=== PATIENT | female | born 1995 | race Two or more races ===

== ENCOUNTER → 2024-06-04 | Outpatient (CLI) | payer BC ==
[2024-06-04 11:56] LABS: Basophils # (auto) 0.1 10 ^3/uL (0-0.2); Basophils % (auto) 0.6 % (0.0-2.0); Eosinophils # (auto) 0.1 10 ^3/uL (0-0.8); Eosinophils % (auto) 1.1 % (0.0-7.0); Hematocrit 37.7 % (36.0-46.0); Hemoglobin 12.7 g/dL (12.2-16.2); Lymphocytes # (auto) 2.3 10 ^3/uL (0.4-5.4); Lymphocytes % (auto) 24.5 % (10.0-50.0); Mean Corpuscular Hemoglobin 28.3 pg (28.0-32.0); Mean Corpuscular Hgb Conc. 33.6 g/dL (32.0-36.0); Mean Corpuscular Volume 84.3 fL (80.0-100.0); Monocytes # (auto) 0.5 10 ^3/uL (0-1.3); Monocytes % (auto) 5.9 % (0.0-12.0); Neutrophils # (auto) 6.2 10 ^3/uL (1.6-8.6); Neutrophils % (auto) 67.9 % (37.0-80.0); Platelet Count (auto) 286 10^3/uL (140-450); Red Blood Cells 4.48 10^6/uL (4.0-5.20); Red Cell Distribution Width 13.6 % (11.8-14.3); White Blood Cell 9.2 10^3/uL (4.4-10.8)
[2024-06-05 07:07] LABS: RPR Non Reactive (Non Reactive)
[2024-06-05 13:03] LABS: Amphetamine Screen, Urine Neg (NEGATIVE); Barbiturate Scree,Urine Neg (NEGATIVE); Benzodiazephine Screen, Urine Neg (NEGATIVE); Cocaine Screen, Urine Neg (NEGATIVE); Opiate Scree,Urine Neg (NEGATIVE); Phencyclidine Screen, Urine Neg (NEGATIVE)
[2024-06-05 13:06] LABS: Chlamydia Trachomatis, NAA Negative (Negative); Neisseria gonorrhoeae, NAA Negative (Negative)
[2024-06-05 13:35] LABS: Cannabinoid Screen, Urine Neg (NEGATIVE)
== END | disposition home or self-care (01) ==
LOC: LAB 11:24
PROVIDERS: ATTEND Obstetrics & Gynecology
DX: O23.40 Unspecified infection of urinary tract in pregnancy, unspecified trimester (principal); Z31.430 Encounter of female for testing for genetic disease carrier status for procreative management; N39.0 Urinary tract infection, site not specified; Z20.09 Contact with and (suspected) exposure to other intestinal infectious diseases; Z3A.00 Weeks of gestation of pregnancy not specified
CPT/HCPCS: 36415; 80307; 83036; 84144; 84702; 85025; 86592; 86703; 86762; 86850; 86900; 86901; 87086; 87340

== ENCOUNTER 2024-06-08 20:16 | Emergency (ER) | payer BC | END 2024-06-08 21:14 | disposition left against medical advice (07) | LOC: ER 20:16 | DX: N93.9 Abnormal uterine and vaginal bleeding, unspecified (principal); Z53.21 Procedure and treatment not carried out due to patient leaving prior to being seen by health care provider ==

== ENCOUNTER 2024-09-26 13:17 | Observation (INO) | payer BC ==
[~2024-09-26] VITALS: Ht 157.5 cm; Wt 70.3 kg
[2024-09-26] MEDS ORDERED: PREN-129 OR (13:29)
--- NOTE | 2024-09-26 14:39 | DVH ---
LIMITED OB ULTRASOUND > 14 WKS: HISTORY: Cervical Length/ Short Cervix TECHNIQUE: Multiple real-time grayscale images of the gravid uterus with duplex Doppler color flow an d M-mode spectral analysis. TRANSDUCER: Pain FINDINGS: IUP single live fetus at 23 weeks 2 days based on composite averages of the BPD, head circumference, abdominal circumference and femur length Estimated weight 543 grams heart rate 153 beats per minute LITA subjectively adequate; MVP 5.2 cm. Cervix measures 2.5 cm. Breech Presentation Anterior Placenta without previa or abruption. IMPRESSION: IUP single live fetus at 23 weeks 2 days AUA corresponding to an JAYDEN of 01/21/2025 Cervix is shortened measures 2.5 cm with possible funneling visualized. Recommend correlation with g ynecologic exam.
[2024-09-26] MEDS: BETAMETHASONE ACET (30mg/5ml) 5ml Vial 6mg/ml IM ONE (15:39)
--- NOTE | 2024-09-28 08:40 | DVHDS2 ---
Physician Discharge Progress N Final Diagnosis: short cx,ptl 24wks Operations or Procedures: Operations or Procedures nst reactive reviwed,sono Condition on Discharge: Good Disposition: Home Discharge Instructions: Diet: Regular Activity: No Restrictions, As Tolerated Follow Up/Referral: as scheduled Medications: na Follow Up Care: Specialist: 1d Discharge Statement: "Patient was advised to return to the ER or call 911 if any headaches, dizziness, shortness of breath, chest pain, abdominal pain, bleeding, fevers, or worsening of medical condition. Patient was counseled about treatment plan, medications, possible side effects, patientverbalized understanding. All questions were answered to the best of my ability. This discharge took greater then 30 minutes in planning, reviewing documentation, counseling the patient, and discussing with other team members." Visit Coding OBGYN Date of Service: Sep 26, 2024 Billing Provider: MEKA PATEL DO BOOM [employer]ORAGE Common Visit Codes: [id number] OBS CARE (HIGH) BOOM STORAGE Procedure Codes: 56771-78- NON-STRESS TEST MEKA PATEL DO Sep 28, 2024 08:40
== END 2024-09-26 15:47 | disposition home or self-care (01) ==
LOC: LDRP 13:17
PROVIDERS: ADMIT Obstetrics & Gynecology; ATTEND Obstetrics & Gynecology
DX: O26.872 Cervical shortening, second trimester (principal); O60.02 Preterm labor without delivery, second trimester; Z3A.24 24 weeks gestation of pregnancy; Z79.899 Other long term (current) drug therapy; Z98.890 Other specified postprocedural states
CPT/HCPCS: 76805; 81002; 94760; 96372; G0378; J0702

== ENCOUNTER 2024-09-27 14:54 | Observation (INO) | payer BC ==
[~2024-09-27] VITALS: Ht 157.5 cm; Wt 59.0 kg
[~2024-09-27 14:54] MED LIST: PREN-129 OR
[2024-09-27] MEDS: BETAMETHASONE ACET (30mg/5ml) 5ml Vial 6mg/ml IM ONE (15:52)
--- NOTE | 2024-09-27 17:41 | DVHDS2 ---
Physician Discharge Progress N Final Diagnosis: PTL 24WKS Operations or Procedures: Operations or Procedures NST REVIEWED REACTIVE Condition on Discharge: Good Disposition: Home Discharge Instructions: Diet: Regular Activity: No Restrictions, As Tolerated Medications: NA Follow Up Care: Specialist: 1W Discharge Statement: "Patient was advised to return to the ER or call 911 if any headaches, dizziness, shortness of breath, chest pain, abdominal pain, bleeding, fevers, or worsening of medical condition. Patient was counseled about treatment plan, medications, possible side effects, patientverbalized understanding. All questions were answered to the best of my ability. This discharge took greater then 30 minutes in planning, reviewing documentation, counseling the patient, and discussing with other team members." Visit Coding OBGYN Date of Service: Sep 27, 2024 Billing Provider: MEKA PATEL DO MEDICAL RECORDS AUDITOR Common Visit Codes: 00410-LEAIZEE INP/OBS CARE (HIGH) MEDICAL RECORDS AUDITOR Procedure Codes: 79007-95- NON-STRESS TEST MEKA PATEL DO Sep 27, 2024 17:41
== END 2024-09-27 16:27 | disposition home or self-care (01) ==
LOC: LDRP 14:54 → UNDOADMOB 14:54 → LDRP 15:07
PROVIDERS: ADMIT Obstetrics & Gynecology; ATTEND Obstetrics & Gynecology
DX: O60.02 Preterm labor without delivery, second trimester (principal); Z3A.24 24 weeks gestation of pregnancy; Z79.899 Other long term (current) drug therapy; Z98.890 Other specified postprocedural states
CPT/HCPCS: 59025; 81002; 94760; 96372; G0378; J0702

== ENCOUNTER 2024-10-03 09:37 | Observation (INO) | payer BC | END 2024-10-03 17:37 | disposition home or self-care (01) | LOC: LDRP 17:05 | PROVIDERS: ADMIT Obstetrics & Gynecology; ATTEND Obstetrics & Gynecology | DX: O26.872 Cervical shortening, second trimester (principal); Z3A.25 25 weeks gestation of pregnancy; Z79.899 Other long term (current) drug therapy; Z98.890 Other specified postprocedural states | CPT/HCPCS: 81002; 94760; G0378 ==

== ENCOUNTER 2024-10-10 06:25 | Observation (INO) | payer BC ==
[2024-10-10] MEDS ORDERED: NIFE10CA52 PO (09:42)
--- NOTE | 2024-10-10 10:11 | DVHDS2 ---
Physician Discharge Progress N Final Diagnosis: ptl,26wks Operations or Procedures: Operations or Procedures nst reactive abdoul issa Condition on Discharge: Good Disposition: Home Discharge Instructions: Diet: Regular Activity: See Comment Activity comment: Pelvic Rest Medications: na Follow Up Care: Specialist: 1w Discharge Statement: "Patient was advised to return to the ER or call 911 if any headaches, dizziness, shortness of breath, chest pain, abdominal pain, bleeding, fevers, or worsening of medical condition. Patient was counseled about treatment plan, medications, possible side effects, patientverbalized understanding. All questions were answered to the best of my ability. This discharge took greater then 30 minutes in planning, reviewing documentation, counseling the patient, and discussing with other team members." Visit Coding OBGYN Date of Service: Oct 10, 2024 Billing Provider: MEKA PATEL DO BLAST SETTER Common Visit Codes: 26134-[id number] OBS CARE (HIGH) BLAST SETTER Procedure Codes: 53515-27- NON-STRESS TEST MEKA PATEL DO Oct 10, 2024 10:11
== END 2024-10-10 09:51 | disposition home or self-care (01) ==
LOC: LDRP 08:53 → UNDOADMOB 08:53 → LDRP 09:04
PROVIDERS: ADMIT Obstetrics & Gynecology; ATTEND Obstetrics & Gynecology
DX: O60.02 Preterm labor without delivery, second trimester (principal); Z3A.26 26 weeks gestation of pregnancy; Z79.899 Other long term (current) drug therapy
CPT/HCPCS: 81002; G0378

== ENCOUNTER 2024-11-05 08:36 | Outpatient (CLI) | payer BC ==
[~2024-11-05 08:36] MED LIST changes: +NIFE10CA52 PO
[2024-11-05 09:04] LABS: Hematocrit 32.4 % (36.0-46.0); Hemoglobin 10.8 g/dL (12.2-16.2); Mean Corpuscular Hemoglobin 27.2 pg (28.0-32.0); Mean Corpuscular Volume 81.8 fL (80.0-100.0); Nucleated Red Blood Cells % 0.0 %
== END 2024-11-05 17:00 | disposition home or self-care (01) ==
LOC: LAB 08:36
PROVIDERS: ATTEND Obstetrics & Gynecology
DX: Z34.93 Encounter for supervision of normal pregnancy, unspecified, third trimester (principal); Z3A.30 30 weeks gestation of pregnancy; Z79.899 Other long term (current) drug therapy
CPT/HCPCS: 36415; 82951; 83036; 85025; 87086

== ENCOUNTER 2024-12-28 04:35 | Inpatient (IN) | payer BC ==
[2024-12-28] VITALS (20 sets, daily range): BP systolic 91–127; BP diastolic 47–79; PULSE 83–112; RESP 16–18; TEMP 98.3–98.8; O2SAT 93–100
[~2024-12-28] VITALS: Ht 167.6 cm; Wt 81.2 kg
[2024-12-28] MEDS: LACTATED RINGER'S 1,000 ML IV SCH ×2 (05:00→06:29)
[2024-12-28 05:44] LABS: Hemoglobin 10.6 g/dL (12.2-16.2); Nucleated Red Blood Cells % 0.0 %
[2024-12-28 05:46] LABS: Hematocrit 31.6 % (36.0-46.0); Mean Corpuscular Hemoglobin 26.1 pg (28.0-32.0); Mean Corpuscular Volume 77.5 fL (80.0-100.0)
[2024-12-28] MEDS: LACTATED RINGER'S 1,000 ML IV ONE (05:47)
[2024-12-28 05:50] LABS: Urine Budding Yeast OCCASIONAL /hpf (None Seen); Urine Protein, UAD Negative (Negative)
[2024-12-28 05:59] LABS: Alanine Aminotransferase 11 U/L (7-40); Albumin 3.9 g/dL (3.2-4.8); Alkaline Phosphatase 110 U/L (46-116); Anion Gap 11 (5-15); BUN/Creatinine Ratio 9.6 (10.0-20.0); Blood Urea Nitrogen < 5 mg/dL (9-23); Calcium 9.0 mg/dL (8.7-10.4); Carbon Dioxide 20 mmol/L (20-31); Chloride 106 mmol/L (98-107); Glucose 78 mg/dL (74-106); INR 0.94 (0.9-1.15); Partial Thromboplastin Time 29.2 SEC (24.5-34.5); Potassium 3.8 mmol/L (3.5-5.1); Prothrombin Time 10.0 sec (9.3-11.8); Sodium 137 mmol/L (136-145); Total Protein 6.7 g/dL (5.7-8.2)
[2024-12-28 06:00] LABS: Bilirubin, Total 0.4 mg/dL (0.2-1.0)
--- NOTE | 2024-12-28 06:00 | DVHHP2 ---
OB CC & HPI Date Date of Admission: Dec 28, 2024 Patient Identification: : 2 Para: 1 EDC: Jan 14, 2025 EGA: 37-4/7 Chief Complaints: Reason for admission: active labor Indication for : desires repeat Admission Nurse Assessment Rev: Yes History of Present Complaints Good care against doctors Zabar Past Medical History Cardiac: No pertinent Hx Pulmonary: No pertinent Hx Central Nervous System: No pertinent Hx GI: No pertinent Hx Hemotology/Oncology: No pertinent Hx Hepatobiliary: No pertinent Hx Psychiatric: No pertinent Hx Musculoskeletal: No pertinent Hx Rheumotologic: No pertinent Hx Infectious Disease: No peritnent Hx ENT: No pertinent Hx Renal/: No pertinent Hx Endocrine: No pertinent Hx Dermatology: No pertinent Hx OB History OB History Care: Good Care Ultrasounds: Normal mid trimester US Obstetrical Complications: None Medical Complications: None Allergies: Coded Allergies: NO KNOWN ALLERGIES (Unverified , 09/26/24) Home Meds Reported Medications Nifedipine (PROCARDIA CAPSULE) 10 Mg Cp, 10 MG PO Q6HR, CAP 10/10/24 Vit W/ Ferrous Fumara () Tab, 1 OR, TAB 09/26/24 Current Medications Current Medications Medications (Trade) Dose Ordered Sig/Nilson Route PRN Reason Start Time Stop Time Status Last Admin Lactated Ringer's 1,000 ml @ 125 mls/hr Q8H IV 12/28/24 05:00 Lactated Ringer's 1,000 ml @ 125 mls/hr Q8H IV 12/28/24 05:00 Family & Social History Family/Social History Blood Type: A+ Rubella: immune RPR/VDRL: Negative GBS Status: Unknown HBsAG: Negative Review of Systems Constitutional: No symptom reported Ears, Nose, & Throat: No symptom reported Eyes: No symptom reported Pulmonary/Respiratory: No symptom reported Cardiovascular: No symptom reported Gastrointestinal: No symptom reported Genitourinary: No symptom reported Musculoskeletal: No symptom reported Skin: No symptom reported Psychiatric: No symptom reported Endocrine: No symptom reported Hemotologic/Lymphatic: No symptom reported OB Admission Exam Physical Exam HEENT: TMs Normal, Fontanelles Normal, Nasal Mucosa Normal, Eyes non-injected, Oropharynx Normal, PERRLA, Moist Membranes, EOMI Heart: Rhythm Normal Lungs: Clear Abdomen: Non tender Extremities: Normal Reflexes: Normal Cervical Dilatation: 3cm Effacement: 50% Station: -3 Membranes: Intact Heart Rate: 130's Accelerations: Accelerations Present Decelerations: No Decelerations Short Term Variability: Present Long-Term Variability: Average (6-25) Contractions on Admission: < 5 Minutes Apart Intensity: Moderate OB Plan Plan Admitting Diagnosis: Repeat Plan: Section Other Plan: I discussed the risks benefits complications and alternatives with patient and her at bedside. This discussion was not limited to infection bleeding anesthesia acute chronic pain damage to adjacent organs bladder ureter bowel nerve muscle and blood vessels. She understands the general risks of infection bleeding anesthesia acute chronic pain damage to adjacent organs transfusion hep B HIV transfusion reaction my stroke DVT PE. Despite these risks patient adamantly wants to proceed I encouraged her and her to ask questions and all questions were answered thoroughly. Visit Coding OBGYN Date of Service: Dec 28, 2024 Billing Provider: JOSELYN BLACK DO HEALTH INFORMATION PROVIDER Common Visit Codes: PROCEDURE ONLY HEALTH INFORMATION PROVIDER Procedure Codes: [id number]-ORGNI OB CARE, JOSELYN ESTEVES DO Dec 28, 2024 06:00
--- NOTE | 2024-12-28 06:05 | DVHOP2 ---
Operative Report - 2 Report Details Date: 12/28/24 Preop Diagnosis: 37-4/7 weeks early active labor intact previous section. Postop Diagnosis: Same Surgeon: Anish Hernandez Horn Player: Tien bautista Anesthesiologist: Chantell Weber MD Anesthesia: Regional Drains: Chapa catheter Implant: None Consent: The patient was informed of the risks and benefits of the procedure. These include but are not limited to complications of anesthesia, postoperative infection, incomplete relief of symptoms, recurrence of symptoms, damage to blood vessels, nerves and tendons, deep venous thrombosis, pulmonary embolism and possible need for repeat surgery in the future. Complications: None Estimated Blood Loss: 600 mL Fluids: See anesthesia log Findings: Infant vigorous cry and tone male Apgars Male 9:9 wt 5lbs 7 oz Indications for Surgery: Previous section early active labor Name of Procedure Performed Repeat low transverse section Procedure Details Procedure Details: Patient taken the operating room placed in sitting position spinal placed without difficulty she was then placed left lateral tilt prepped and draped sterile fashion. Once adequate analgesia assured low transverse incision was made with scalpel through old scar carried through to the rectus fascia nicked in midline carried laterally rectus muscle midline peritoneum entered with sharp dissection vesicouterine peritoneum was taken off lower uterine segment and low uterine transverse incision made to the hour glassing chorion an amniotic membranes these were ruptured with [place] forceps clear fluid vertex position. One hand placed lower uterine segment and head essentially delivered spontaneously nose and mouth bulb suctioned 62nd delay of cord clamping was performed in cord blood sample was taken placenta removed uterus exteriorized cleared of all clots and debris irrigated and closed with double layer of 0 Vicryl the bladder flap was incorporated into the 2nd running continuous 0 Vicryl closure of hysterotomy. Having complete hemostasis EBL 600 cc uterus good tone. This point instrument and lap sponge count correct x1 peritoneum closed with a running continuous 2-0 Vicryl rectus fascia closed with a running continuous PDS suture. Camper's Satinder's fascia approximated with 2-0 chromic and the skin was closed with a Pk needle with 3-0 Prolene benzoin Steri-Strips placed ABD pad with pressure dressing. Patient was frog-legged in vagina was cleared of all clots and debris and showed no active bleeding. Patient taken to recovery room stable condition infant went to nursery. Specimen: Placenta; cord blood Condition Good Disposition PACU JOSELYN HERNANDEZ DO Dec 28, 2024 06:05
[2024-12-28 06:20] LABS: Amphetamine Screen, Urine Neg (NEGATIVE); Barbiturate Scree,Urine Neg (NEGATIVE); Benzodiazephine Screen, Urine Neg (NEGATIVE); Cannabinoid Screen, Urine Neg (NEGATIVE); Cocaine Screen, Urine Neg (NEGATIVE); Opiate Scree,Urine Neg (NEGATIVE); Phencyclidine Screen, Urine Neg (NEGATIVE)
[2024-12-28] MEDS ORDERED: GLYCOPYRROLATE 0.2 MG/ML 1ML VIAL ONE (06:26)
[2024-12-28] MEDS ORDERED: ONDANSETRON HCL 4 MG/2 ML VIAL ONE (06:26)
[2024-12-28] MEDS ORDERED: fentaNYL CITRATE 100 MCG/2 ML VL ONE (06:26)
[2024-12-28] MEDS ORDERED: KETOROLAC TROMETH 30 MG/ML 1ML VIAL ONE (06:26)
[2024-12-28] MEDS ORDERED: MORPHINE SULF PF 5 MG/10 ML VIAL ONE (06:26)
[2024-12-28] MEDS ORDERED: BUPIVACAINE/DEXTROSE MPF 0.75% 2 ML AMP IT ONE (06:26)
[2024-12-28] MEDS: ceFAZolin 2 GM/D5W50ml 50 ML IV ONE (06:29)
[2024-12-28] MEDS ORDERED: ACETAMINOPHEN IV 1000 MG/100ML (10MG/ML) IV PRN (07:45)
[2024-12-28] MEDS ORDERED: LACTATED RINGER'S 1,000 ML IV SCH (07:45)
[2024-12-28] MEDS ORDERED: KETOROLAC TROMETH 30 MG/ML 1ML VIAL IV PRN ×2 (07:45→08:00)
[2024-12-28] MEDS ORDERED: NALOXONE HCL 0.4 MG/ML VIAL IV PRN (08:00)
[2024-12-28] MEDS ORDERED: diphenhdrAMINE HCL 50 MG/1 ML VL IV PRN (08:00)
[2024-12-28] MEDS ORDERED: ONDANSETRON HCL 4 MG/2 ML VIAL IV PRN (08:00)
[2024-12-28] MEDS: ceFAZolin 1GM/50ML 50 ML IV SCH (14:31)
[2024-12-28] MEDS: ACETAMINOPHEN IV 1000 MG/100ML (10MG/ML) IV PRN (15:03)
[2024-12-28] MEDS: KETOROLAC TROMETH 30 MG/ML 1ML VIAL IV PRN (19:13)
[2024-12-29] VITALS (13 sets, daily range): BP systolic 91–118; BP diastolic 49–64; PULSE 71–97; RESP 16–20; TEMP 97.7–98; O2SAT 94–98
--- NOTE | 2024-12-29 07:24 | DVHPN2 ---
Chief Complaints Patient reports: No new complaints, Feels better Nursing reports: No new complaints, No abdominal pain, No chest pain, No dizziness Objective Vitals Vital Signs Date Time Temp Pulse Resp B/P (MAP) Pulse Ox O2 Delivery O2 Flow Rate FiO2 12/29/24 05:30 77 16 95 12/29/24 03:00 97.7 91/52 (65) 97.7 12/28/24 18:59 Room Air Medications Current Medications Medications (Trade) Dose Ordered Sig/Nilson Route PRN Reason Start Time Stop Time Status Last Admin Acetaminophen (Ofirmev) 1,000 mg Q6HPRN PRN IV PAIN SCALE 1-6 OR TEMP>100.4 12/28/24 08:00 12/29/24 00:18 Acetaminophen (Ofirmev) 1,000 mg Q8HPRN PRN IV PAIN SCALE 1-3 OR TEMP>100.4 12/28/24 07:45 12/29/24 06:01 Cancel Diphenhydramine HCl (Benadryl Injection) 25 mg Q4HP PRN IV FOR ITCHING 12/28/24 08:00 Ketorolac Tromethamine (Toradol Injection) 30 mg Q6HP PRN IV SEVERE PAIN (7-10 PAIN SCALE) 12/28/24 18:15 01/02/25 07:59 12/28/24 19:13 Ketorolac Tromethamine (Toradol Injection) 30 mg Q8HPRN PRN IV MODERATE PAIN (4-6 PAIN SCALE) 12/28/24 07:45 01/02/25 07:44 Cancel Ondansetron HCl (Zofran) 4 mg Q4HP PRN IV NAUSEA / VOMITING 12/28/24 07:45 General: Normal Head/Eyes: Normal ENT: Normal Neck: Normal Lungs: Normal Cardiovascular: Normal Heart Murmur: no murmur Abdominal: Normal (wound c/d/i no sign of infection) Musculoskeletal: Normal Extremities: Normal Skin: Normal Neurological: Normal Studies Laboratory Tests 12/28/24 05:22 Test 12/28/24 05:22 Range/Units Serum Glucose 78 74-106 mg/dL Ass/Plan Assessment POD #1 stable improved Plan Advance care JOSELYN BLACK DO Dec 29, 2024 07:24
[2024-12-29 08:48] LABS: Hematocrit 27.5 % (36.0-46.0); Hemoglobin 9.1 g/dL (12.2-16.2); Mean Corpuscular Hemoglobin 25.6 pg (28.0-32.0); Mean Corpuscular Volume 77.8 fL (80.0-100.0); Nucleated Red Blood Cells % 0.0 %
[2024-12-29] MEDS: ONDANSETRON HCL 4 MG/2 ML VIAL IV PRN (09:08)
[2024-12-29] MEDS ORDERED: ACETAMINOPHEN IV 1000 MG/100ML (10MG/ML) IV PRN (12:00)
[2024-12-29] MEDS: HYDROcodone-ACET 5/325MG TAB PO PRN ×2 (14:30→19:05)
[2024-12-29] MEDS: SIMETHICONE 80 MG CHEWABLE TABLET PO SCH (14:31)
[2024-12-29] MEDS: DOCUSATE SOD 100 MG CAP PO ONE (14:31)
[2024-12-29] MEDS: IBUPROFEN 800 MG TAB PO PRN (22:33)
[2024-12-29] MEDS: DOCUSATE SOD 100 MG CAP PO SCH (22:34)
[2024-12-30 03:00] VITALS: BP 101/54; PULSE 75; RESP 16; TEMP 98.2
--- NOTE | 2024-12-30 06:39 | DVHDS2 ---
Discharge Summary Date of Admission Dec 28, 2024 at 04:55 Date of Discharge: Dec 30, 2024 Admitting Diagnosis Labor previous Wounds: Wound clean dry intact, afebrile vital signs stable minimal lochia lungs clear heart rate and rhythm regular abdomen is soft uterus firm Labs/Diagnostic Data: Laboratory Results Test 12/29/24 07:37 12/28/24 05:22 12/28/24 04:35 White Blood Count 13.5 10^3/uL (4.4-10.8) Red Blood Count 3.53 10^6/uL (4.0-5.20) Hemoglobin 9.1 g/dL (12.2-16.2) Hematocrit 27.5 % (36.0-46.0) Mean Corpuscular Volume 77.8 fL (80.0-100.0) Mean Corpuscular Hemoglobin 25.6 pg (28.0-32.0) Mean Corpuscular Hemoglobin Concent 33.0 g/dL (32.0-36.0) Red Cell Distribution Width 14.0 % (11.8-14.3) Platelet Count 229 10^3/uL (140-450) Mean Platelet Volume 9.3 fL (6.9-10.8) Neutrophils (%) (Auto) 69.6 % (37.0-80.0) Lymphocytes (%) (Auto) 22.5 % (10.0-50.0) Monocytes (%) (Auto) 6.9 % (0.0-12.0) Eosinophils (%) (Auto) 0.6 % (0.0-7.0) Basophils (%) (Auto) 0.4 % (0.0-2.0) Neutrophils # (Auto) 9.4 10 ^3/uL (1.6-8.6) Lymphocytes # (Auto) 3.0 10 ^3/uL (0.4-5.4) Monocytes # (Auto) 0.9 10 ^3/uL (0-1.3) Eosinophils # (Auto) 0.1 10 ^3/uL (0-0.8) Basophils # (Auto) 0 10 ^3/uL (0-0.2) Nucleated Red Blood Cells 0.0 % Prothrombin Time 10.0 sec (9.3-11.8) Prothrombin Time INR 0.94 (0.9-1.15) Activated Partial Thromboplast Time 29.2 SEC (24.5-34.5) Sodium Level 137 mmol/L (136-145) Potassium Level 3.8 mmol/L (3.5-5.1) Chloride Level 106 mmol/L (98-107) Carbon Dioxide Level 20 mmol/L (20-31) Anion Gap 11 (5-15) Blood Urea Nitrogen < 5 mg/dL (9-23) Creatinine 0.52 mg/dL (0.550-1.02) Glomerular Filtration Rate Calc 127 mL/min (>90) BUN/Creatinine Ratio 9.6 (10.0-20.0) Serum Glucose 78 mg/dL (74-106) Calcium Level 9.0 mg/dL (8.7-10.4) Total Bilirubin 0.4 mg/dL (0.2-1.0) Aspartate Amino Transferase (AST) 13 U/L (13-40) Alanine Aminotransferase (ALT) 11 U/L (7-40) Alkaline Phosphatase 110 U/L (46-116) Total Protein 6.7 g/dL (5.7-8.2) Albumin 3.9 g/dL (3.2-4.8) Treponema pallidum Antibody Non-reactive (Negative) Hepatitis C Antibody Negative (Negative) Urine Color Colorless (Yellow) Urine Clarity Turbid (Clear) Urine pH 6.5 (5.0-9.0) Urine Specific [place] 1.006 (1.001-1.035) Urine Protein Negative (Negative) Urine Ketones Negative (Negative) Urine Blood Negative /uL (Negative) Urine Nitrite Negative (Negative) Urine Bilirubin Negative (Negative) Urine Urobilinogen Normal mg/dL (Negative) Urine Leukocyte Esterase Negative /uL (Negative) Urine RBC <1 /hpf (0 - 4) Urine Microscopic WBC 2 /HPF (0-5) Urine Squamous Epithelial Cells Few /hpf (<5) Urine Bacteria Few /hpf (None Seen) Urine Yeast (Budding) Occasional /hpf (None Urine Glucose Normal mg/dL (Normal) Urine Opiates Screen Neg (NEGATIVE) Urine Fentanyl Screen Neg (NEGATIVE) Urine Barbiturates Screen Neg (NEGATIVE) Urine Phencyclidine Screen Neg (NEGATIVE) Urine Amphetamines Screen Neg (NEGATIVE) Urine Benzodiazepines Screen Neg (NEGATIVE) Urine Cocaine Screen Neg (NEGATIVE) Urine Cannabinoids Screen Neg (NEGATIVE) Other Laboratory Tests 12/29/24 07:37 12/28/24 05:22 Brief Hx & Hospital Course: Patient arrived in Labor was taken to OR emergently and section performed no intraoperative postop complications diff for discharge postop day 2 Consults/Reason for consult None Operations or Procedures Repeat low transverse section Condition at Discharge: Good Final Diagnosis/Problems List Same Discharge Disposition: Home Discharge Instruct/Medications Diet: Regular Activity: Light activity Activity comment: Pelvic rest 6 weeks shower only Follow Up/Referral: Wound check 1 week and suture removal Medications: Doctors Kayden will assist me with discharge prescriptions Scheduled Nifedipine (Procardia Capsule), 10 MG PO Q6HR, (Reported) Miscellaneous Medications Vit W/ Ferrous Fumara (), 1 OR, (Reported) Discharge Statement: "Patient was advised to return to the ER or call 911 if any headaches, dizziness, shortness of breath, chest pain, abdominal pain, bleeding, fevers, or worsening of medical condition. Patient was counseled about treatment plan, medications, possible side effects, patientverbalized understanding. All questions were answered to the best of my ability. This discharge took greater then 30 minutes in planning, reviewing documentation, counseling the patient, and discussing with other team members." ASSESSMENT ASSESSMENT Assessment Same Visit Coding OBGYN Date of Service: Dec 30, 2024 Billing Provider: JOSELYN BLACK DO SLEEVE SETTER SAFETY STITCH Common Visit Codes: 08825-KIR/OBS SAME DATE (HIGH) SLEEVE SETTER SAFETY STITCH Procedure Codes: 91753-UXSDN OB CARE, JOSELYN ESTEVES DO Dec 30, 2024 06:39
[2024-12-30 06:45] VITALS: BP 120/70; PULSE 86; RESP 16; TEMP 98; O2SAT 99
[2024-12-30 11:00] VITALS: BP 120/62; PULSE 97; TEMP 98.1; O2SAT 98
[2024-12-30] MEDS ORDERED: HYDR-4072 PO (12:05)
[2024-12-30] MEDS ORDERED: DOCU-94 PO (12:05)
[2024-12-30] MEDS ORDERED: IBUP-1456 PO (12:05)
[2024-12-30 14:55] VITALS: BP 108/74; PULSE 98; TEMP 98.3; O2SAT 98
== END 2024-12-30 15:17 | disposition home or self-care (01) | DRG 788 ==
LOC: LDRP 04:35 → OBSVTOIN 04:55 → LDRP 07:47
PROVIDERS: ADMIT Obstetrics & Gynecology; ATTEND Obstetrics & Gynecology
PROC: 10D00Z1 Extraction of Products of Conception, Low, Open Approach (ICD-10-PCS; principal; 2024-12-28 06:37)
DX: O34.211 Maternal care for low transverse scar from previous cesarean delivery (principal); Z37.0 Single live birth; Z3A.37 37 weeks gestation of pregnancy
CPT/HCPCS: 36415; 59025; 80053; 80307; 81001; 81002; 85025; 85610; 85730; 86780; 86803; 86850; 86900; 86901; 94760; 94762; 96360; 96361; 96365; 96366; 96374; G0378; J0131; J1885; J2405; J2590